=== PATIENT | female | born 2000 | race Asian ===

== ENCOUNTER 2022-12-28 00:29 | Emergency (ER) | payer OTHER ==
[~2022-12-28] VITALS: Ht 167.6 cm; Wt 63.5 kg
[2022-12-28] MEDS ORDERED: IBUPROFEN 600MG TAB PO ONE (03:55)
[2022-12-28 04:29] LABS: BASO % 0.3 % (0.0-1.0); EOS # 0.1 10^3/uL (0.0-0.5); EOS % 0.8 % (0.0-3.0); HEMATOCRIT 36.2 % (36.0-47.0); HEMOGLOBIN 11.5 g/dl (12.0-15.5); LYMPH # 2.4 10^3/uL (1.5-5.0); LYMPH % 27.5 % (24.0-44.0); MEAN CORPUSCULAR HEMOGLOBIN 20.2 pg (27.0-33.0); MEAN CORPUSCULAR HGB CONC 31.8 g/dl (32.0-36.5); MEAN CORPUSCULAR VOLUME 63.7 fl (80.0-96.0); MONO # 0.8 10^3/uL (0.0-0.8); MONO % 9.8 % (2.0-8.0); NEUTROPHILS # 5.3 10^3/uL (1.5-8.5); NEUTROPHILS % 61.5 % (36.0-66.0); PLATELET COUNT, AUTOMATED 217 10^3/uL (150-450); RED BLOOD COUNT 5.68 10^6/uL (4.00-5.40); WHITE BLOOD COUNT 8.6 10^3/uL (4.0-10.0)
[2022-12-28 04:30] VITALS: TEMP 97.7
[2022-12-28 04:49] LABS: LIPASE 39 U/L (12-53)
[2022-12-28 04:51] LABS: ALBUMIN 3.6 G/DL (3.2-5.2); ALKALINE PHOSPHATASE 60 U/L (46-116); ALT/SGPT < 9 U/L (7.0-40); AST/SGOT 16 U/L (<34); BILIRUBIN,DIRECT 0.1 MG/DL (<0.4); BILIRUBIN,TOTAL 0.3 MG/DL (0.3-1.2); BLOOD UREA NITROGEN 9 MG/DL (9-23); CALCIUM LEVEL 8.6 MG/DL (8.5-10.1); CARBON DIOXIDE LEVEL 26 MMOL/L (20-31); CHLORIDE LEVEL 106 MMOL/L (98-107); CREATININE FOR GFR 0.72 MG/DL (0.55-1.30); GLUCOSE, FASTING 90 MG/DL (60-100); POTASSIUM SERUM 3.7 MMOL/L (3.5-5.1); SODIUM LEVEL 139 MMOL/L (136-145); TOTAL PROTEIN 6.5 G/DL (5.7-8.2)
[2022-12-28 04:55] LABS: URINE PREG TEST NEGATIVE (NEGATIVE)
[2022-12-28] MEDS ORDERED: cefTRIAXone SOD 1 GM in D5W MINI-BAG PLUS 50 ML IV ONE (05:00)
[2022-12-28 05:15] VITALS: BP 106/63; O2SAT 98
[2022-12-28] MEDS ORDERED: CEFD300C PO (06:02)
== END 2022-12-28 06:09 | disposition home or self-care (01) ==
LOC: M ED 00:29 → EDSEX 00:29 → M ED 06:09
DX: N39.0 Urinary tract infection, site not specified (principal)
CPT/HCPCS: 71046; 80048; 80076; 81001; 83690; 84703; 85025; 87040; 87086; 87486; 87581; 87633; 87798; 87880; 93041; 94760; 96365; 99285; J0696